=== PATIENT | male | born 1975 | race Caucasian/White ===

== ENCOUNTER 2017-06-12 09:08 | Emergency (ER) | payer BC ==
[~2017-06-12] VITALS: Ht 180.3 cm; Wt 108.9 kg
--- NOTE | 2017-06-12 09:12 | NUR ---
BIB [facility] last monday; c/o left shoulder and left hip pain . Gowned pt. awaiting md order
--- NOTE | 2017-06-12 09:33 | NUR ---
DR DUBON AT BEDSIDE FOR EVAL
--- NOTE | 2017-06-12 10:56 | NUR ---
Patient discharged to home in stable condition. Written and verbal after care instructions given. Patient verbalizes understanding of instruction.
[2017-06-12 10:57] VITALS: BP 130/85
== END 2017-06-12 10:58 | disposition home or self-care (01) ==
LOC: ER 09:10
DX: S46.011A Strain of muscle(s) and tendon(s) of the rotator cuff of right shoulder, initial encounter (principal); Z98.84 Bariatric surgery status; W01.0XXA Fall on same level from slipping, tripping and stumbling without subsequent striking against object, initial encounter; Y92.89 Other specified places as the place of occurrence of the external cause; Y93.89 Activity, other specified; Y99.8 Other external cause status
CPT/HCPCS: 73030; 73080; 73551; 99284; A4606; Z7610; 73552

== ENCOUNTER 2019-01-27 08:58 | Emergency (ER) | payer BC ==
[~2019-01-27] VITALS: Ht 175.3 cm; Wt 83.9 kg
[2019-01-27 09:14] VITALS: BP 148/99
[2019-01-27] MEDS ORDERED: DEXAMETHASONE SOD PHOSPHATE 10 MG/ML VIAL ONE (10:18)
[2019-01-27] MEDS ORDERED: DEXAMETHASONE SOD PHOSPHATE 4 MG/ML VIAL IM ONE (10:30)
== END 2019-01-27 10:36 | disposition home or self-care (01) ==
LOC: ER 08:58
DX: K12.2 Cellulitis and abscess of mouth (principal); Z98.84 Bariatric surgery status; Z98.890 Other specified postprocedural states
CPT/HCPCS: 96372; 99283; A4606; J1100